=== PATIENT | female | born 1945 | race Caucasian/White ===

== ENCOUNTER 2018-12-20 12:22 | Emergency (ER) | payer MEDICARE, OTHER ==
[~2018-12-20] VITALS: Ht 142.2 cm; Wt 49.4 kg
[~2018-12-20 12:22] MED LIST: APAP/HYDROCODON1 T15 PO; BG MC; CLINDAMYCI600 MG/50 IV; COL100 PO; CRESTOR10 M1 PO; DEXPF IV; FERL PO; GLU5 PO; GLU850 PO; HEP5I SC; HUMULIN R100 U/1 M1 SC; LAC PO; METFORMINA PO; MIRUD PO; MOM PO; MOR2I IV; PRI20 PO; THERAGRAN-M1 TA4 PO; TRE400 PO; TYL325 PO; ZES10 PO; ZOC10 PO; ZOFI IV; ZOS3PM IV; [UNRECOGNIZED DRUG - CODE] PO; [UNRECOGNIZED DRUG - OTHER]; [UNRECOGNIZED DRUG - OTHER] PO
[2018-12-20 12:27] VITALS: Ht 142.2 cm; Wt 49.4 kg
[2018-12-20 15:08] LABS: BASOPHIL % 0.9 % (0-2); PLATELET COUNT 311 x10^3mcL (130-400); RED CELL DISTRIBUTION WIDTH 13.3 % (11.5-14.5)
[2018-12-20 15:11] LABS: CALCIUM 9.4 mg/dL (8.5-10.1); CARBON DIOXIDE 23.4 mmol/L (21-32); CHLORIDE SERUM 96 mmol/L (98-107); GLUCOSE SERUM 421 mg/dL (74-106); POTASSIUM SERUM 4.9 mmol/L (3.5-5.1); SODIUM SERUM 130 mmol/L (136-145)
[2018-12-20 15:16] LABS: ALKALINE PHOSPHATASE 96 U/L (46-116); ALT/SGPT 14 U/L (14-59); AST/SGOT 8 U/L (15-37); TOTAL PROTEIN, SERUM 7.7 g/dL (6.4-8.2)
[2018-12-20 15:19] LABS: ALBUMIN 3.2 g/dL (3.4-5.0)
[2018-12-20 18:36] VITALS: BP 137/68
== END 2018-12-20 18:36 | disposition home or self-care (01) ==
LOC: ED 12:22
PROVIDERS: Emergency Medicine
DX: H70.001 Acute mastoiditis without complications, right ear (principal); H66.91 Otitis media, unspecified, right ear; E11.65 Type 2 diabetes mellitus with hyperglycemia; I10 Essential (primary) hypertension; E78.5 Hyperlipidemia, unspecified
CPT/HCPCS: 36415; 82962

== ENCOUNTER 2019-08-03 22:54 | Emergency (ER) | payer MEDICARE, OTHER ==
[~2019-08-03] VITALS: Ht 111.8 cm; Wt 49.9 kg
[2019-08-03 23:32] VITALS: Ht 111.8 cm; Wt 49.9 kg
[2019-08-04 01:46] VITALS: BP 133/72
== END 2019-08-04 01:46 | disposition home or self-care (01) ==
LOC: ED 22:54
DX: L03.116 Cellulitis of left lower limb (principal); E11.52 Type 2 diabetes mellitus with diabetic peripheral angiopathy with gangrene; I10 Essential (primary) hypertension; E78.5 Hyperlipidemia, unspecified